=== PATIENT | female | born 1995 | race Two or more races ===

== ENCOUNTER 2023-06-12 13:18 | Observation (INO) | payer MEDICAID, OTHER ==
[~2023-06-12] VITALS: Ht 167.6 cm; Wt 96.6 kg
[2023-06-12] MEDS ORDERED: BETAMETHASONE ACET (30mg/5ml) 5ml Vial 6mg/ml IM ONE (13:45)
[2023-06-12] MEDS ORDERED: LACTATED RINGER'S 1,000 ML IV SCH (13:45)
[2023-06-12] MEDS: TERBUTALINE SULFATE 1 MG/ML 1ML VIAL SC SCH (14:20)
[2023-06-12] MEDS: LACTATED RINGER'S 1,000 ML IV ONE (14:21)
[2023-06-12 14:26] LABS: Urine Bacteria None Seen /hpf (None Seen)
[2023-06-12] MEDS ORDERED: PREN-96 PO (14:30)
[2023-06-12 15:10] LABS: Urine Blood Negative /uL (Negative); Urine Clarity Clear (Clear); Urine Color Yellow (Yellow); Urine Mucus FEW (None Seen); Urine Protein, UAD Negative (Negative); Urine Specific Gravity 1.023 (1.001-1.035); Urine Urobilinogen Normal (Negative); Urine WBC 2 /hpf (0 - 5); Urine pH 5.5 (5.0-9.0)
[2023-06-12 15:17] LABS: Amphetamine Screen, Urine Neg (NEGATIVE); Barbiturate Scree,Urine Neg (NEGATIVE); Benzodiazephine Screen, Urine Neg (NEGATIVE); Cannabinoid Screen, Urine Neg (NEGATIVE); Cocaine Screen, Urine Neg (NEGATIVE); Opiate Scree,Urine Neg (NEGATIVE); Phencyclidine Screen, Urine Neg (NEGATIVE)
[2023-06-12] MEDS: NIFEdipine 10 MG CAP PO ONE (15:25)
[2023-06-12 16:28] LABS: Vaginal Trichomonas Not Present
[2023-06-12 16:29] LABS: Vaginal Bacteria Few
[2023-06-12 16:30] LABS: Vaginal Clue Cells None Seen; Vaginal Epithelial Cells Few
== END 2023-06-12 17:12 | disposition home or self-care (01) ==
LOC: UNDOADMOB 13:18 → LDRP 13:18 → EDBD 13:18 → LDRP 13:20
PROVIDERS: ADMIT Obstetrics & Gynecology; ATTEND Obstetrics & Gynecology
DX: O60.03 Preterm labor without delivery, third trimester (principal); O26.893 Other specified pregnancy related conditions, third trimester; N89.8 Other specified noninflammatory disorders of vagina; Z79.899 Other long term (current) drug therapy; Z3A.32 32 weeks gestation of pregnancy
CPT/HCPCS: 59025; 76815; 80307; 81001; 81002; 87210; 94760; 96360; 96361; 96372; G0378; J3105